=== PATIENT | male | born 1980 | race Caucasian/White ===

== ENCOUNTER 2017-08-27 21:40 | Emergency (ER) | payer OTHER ==
[2017-08-27 21:55] VITALS: BP 157/94; PULSE 106; RESP 20; TEMP 98.2; O2SAT 97
[2017-08-27] MEDS ORDERED: VANCOMYCIN HCL 500 MG PDS 1,000 MG in SODIUM CHLORIDE 0.9% 250 ML 250 ML IV ONE (22:16)
[2017-08-27] MEDS ORDERED: SODIUM CHLORIDE 0.9% 50 ML 25 ML IV PRN (22:16)
[2017-08-27] MEDS ORDERED: SULFAMETHOXAZOLE/TRIMETHOPRI 800/160 MG PO ONE (22:17)
[2017-08-27] MEDS ORDERED: SULFAMETHOXAZOLE/TRIMETHOPRI 800/160 MG ONE (22:21)
[2017-08-27] MEDS ORDERED: VANCOMYCIN HYDROCHLORIDE 500 MG PDS IV ONE (22:21)
[2017-08-27 22:45] LABS: BASOPHILS % (AUTO) 1 % (0-3); EOSINOPHILS % (AUTO) 3 % (0-9); HEMATOCRIT 39 % (39-53); MEAN CORPUSCULAR HGB CONC 36.2 gm/dl (32.0-36.0); MEAN CORPUSCULAR VOLUME 85 fL (80-100); MONOCYTES % (AUTO) 5.8 % (0-12)
[2017-08-27 22:46] LABS: CALCIUM 8.5 mg/dl (8.5-10.1); POTASSIUM 3.4 mMol/L (3.5-5.1)
== END 2017-08-28 00:52 | disposition home or self-care (01) | DRG 603 ==
LOC: ED 21:40
DX: L03.113 Cellulitis of right upper limb (principal); T88.7XXA Unspecified adverse effect of drug or medicament, initial encounter
CPT/HCPCS: 36415; 80048; 85025; 87040; 99283; J3370; A9270-GY

== ENCOUNTER 2017-08-28 18:08 | Emergency (ER) | payer OTHER ==
[2017-08-28] MEDS ORDERED: VANCOMYCIN HCL 500 MG PDS 1,000 MG in SODIUM CHLORIDE 0.9% 250 ML 250 ML IV ONE (18:11)
[2017-08-28] MEDS ORDERED: VANCOMYCIN HYDROCHLORIDE 500 MG PDS IV ONE (18:20)
[2017-08-28 18:31] VITALS: RESP 16; TEMP 97.6
[2017-08-28 18:43] VITALS: BP 143/102; PULSE 105; O2SAT 99
== END 2017-08-28 19:45 | disposition home or self-care (01) | DRG 603 ==
LOC: ED 18:08
DX: L03.113 Cellulitis of right upper limb (principal)
CPT/HCPCS: 99283; J3370

== ENCOUNTER 2017-09-11 11:50 | Outpatient (CLI) | payer OTHER ==
[2017-08-28 18:43] VITALS: O2SAT 99
== END 2017-09-11 11:51 | disposition home or self-care (01) | DRG 556 ==
LOC: CONVCARE 11:50
PROVIDERS: ATTEND Orthopaedic Surgery
DX: M25.521 Pain in right elbow (principal); M70.21 Olecranon bursitis, right elbow
CPT/HCPCS: 73070